=== PATIENT | male | born 1995 | race African-American/Black ===

== ENCOUNTER 2017-08-24 16:19 | Emergency (ER) | payer OTHER ==
[~2017-08-24] VITALS: Ht 175.3 cm; Wt 90.9 kg
[2017-08-24 16:35] VITALS: BP 141/74; PULSE 77; TEMP 99.5
== END 2017-08-24 18:25 | disposition home or self-care (01) ==
LOC: COL.ER 16:19
DX: L25.9 Unspecified contact dermatitis, unspecified cause (principal); F12.90 Cannabis use, unspecified, uncomplicated; Z98.890 Other specified postprocedural states